=== PATIENT | male | born 1990 | race American Indian/Alaskan Native ===

== ENCOUNTER 2017-12-21 18:51 | Emergency (ER) | payer SELFPAY | END 2017-12-21 18:52 | disposition left against medical advice (07) | LOC: ED 18:51 | DX: M79.671 Pain in right foot (principal); V89.2XXA Person injured in unspecified motor-vehicle accident, traffic, initial encounter; Z53.21 Procedure and treatment not carried out due to patient leaving prior to being seen by health care provider; Y93.89 Activity, other specified; Y92.89 Other specified places as the place of occurrence of the external cause; Y99.8 Other external cause status ==